=== PATIENT | female | born 1940 | race Caucasian/White ===

== ENCOUNTER 2017-02-23 06:38 | Day surgery (SDC) | payer MEDICARE, OTHER ==
[~2017-02-23] VITALS: Ht 165.1 cm; Wt 101.1 kg
[2017-02-23] VITALS: BP 173/62
[2017-02-23 07:46] LABS: BASOPHILS 0.5 % (0-2); EOSINOPHILS 2.6 % (0-7); HEMOGLOBIN 12.6 g/dL (12-16); IMMATURE GRANULOCYTES 0.2 % (0-5); LYMPHOCYTES 29.3 % (15-50); MCH 32.8 pg (26.0-34.0); MCHC 33.2 g/dL (31.0-37.0); MEAN PLATELET VOLUME 11.1 fL (7.4-10.4); MONOCYTES 8.7 % (2-11); NEUTROPHILS 58.7 % (40-80); PLATELET COUNT 178 10x3/uL (130-400); RBC 3.84 10x6/uL (4.00-5.40); RDW 15.2 % (11.5-14.5); WBC 5.7 10x3/uL (4.8-10.8)
[2017-02-23 07:54] LABS: APTT 28.1 SECONDS (22.8-39.4); INR 0.94 (0.85-1.17); PROTIME 12.4 SECONDS (11.6-15.0)
[2017-02-23 08:02] LABS: ANION GAP 18.9 mmol/L (8-16); CALCIUM 10.2 mg/dL (8.5-10.1); CARBON DIOXIDE 25.4 mmol/L (21.0-32.0); CREATININE - SERUM 5.8 mg/dL (0.6-1.3); POTASSIUM - SERUM 4.3 mmol/L (3.5-5.1)
[2017-02-23] MEDS ORDERED: HYDRALAZINE HCL25 MG PO (08:20)
[2017-02-23] MEDS ORDERED: FUROSEMIDE40 MG PO (08:20)
[2017-02-23] MEDS ORDERED: NORVASC5 MG PO (08:21)
[2017-02-23] MEDS ORDERED: SYNTHROID50 MCG PO (08:23)
[2017-02-23] MEDS ORDERED: DIOVAN160 MG PO (08:25)
[2017-02-23] MEDS ORDERED: NORMODYNE / TR100 MG PO (08:28)
[2017-02-23 09:12] VITALS: BP 148/63; BMI 36.6
--- NOTE | 2017-02-23 09:52 | NUR ---
0950 LAB VALUES CLEAR PER NEPHROLOGY PARAMETERS. Shara SHAW R.N.
--- NOTE | 2017-02-23 12:32 | NUR ---
FAMILY UPDATED AT THIS TIME IN WAITING ROOM AT EXT 2500
--- NOTE | 2017-02-23 13:30 | NUR ---
RIGHT HERO DIAYLSIS GRAFT RIGHT BRACHEAL CAPHALIC VEIN ANGIOPLASTY SUPERIOR VENA CAVAGRAM
--- NOTE | 2017-02-23 15:01 | NUR ---
PT COMPLAINED OF BEING IN PAIN. RATED PAIN 6/10. RECEIVED FURTER ORDERS TO GIVE BUPRENORPHINE 0.15MG IV PER DR. GRIMES.
--- NOTE | 2017-02-23 15:07 | NUR ---
TRANSFER FROM OR BY BED. OREINTED TO ROOM. CALL LIGHT IN REACH. WILL CONT. PLAN OF CARE.
[2017-02-23 15:17] VITALS: BP 169/72; Ht 165.1 cm; Wt 101.1 kg
[2017-02-23 15:51] VITALS: BP 169/72
--- NOTE | 2017-02-23 16:11 | NUR ---
BLEEDING NOTED TO INCISION SITE. DRY 4X4 AND TAPE APPLIED TO SITE. WILL MONITOR.
--- NOTE | 2017-02-23 19:05 | NUR ---
BEDSIDE REPORT WITH GUZMAN. NAME PLACED ON BOARD AND INTRODUCED TO PT. PT DENIES ANY NEEDS AT THIS TIME. NO S/S OF DISTRESS. PT RESTING AND WILL CALL IF ANY NEEDS. BED LOW AND CALLLIGHT WITHIN REACH
--- NOTE | 2017-02-23 21:33 | NUR ---
PT ON SIDE OF BED. AAO. ASKS FOR JELLO AND SODA. CONVERSATING ABOUT HX AND ABOUT TODAYS PROCEDURE. LEFT HAND IV S/L. PATENT CLEAN AND DRY. DENIES ANY NEEDS. NO S/S OF DISTRESS. WILL CONTINUE TO MONITOR
--- NOTE | 2017-02-23 23:30 | NUR ---
INSENITIVE SPIROMETER GIVEN TO PT AND INSTRUCTIONS GIVEN ON HOW TO USE IT. PT DEMOSTRATED CORRECT USE WITH AN AVERAGE OF 1000. PT WANTED TO MAKE SURE TO PREVENT PNEUMONIA. STATES SHE GETS IT OFTEN. SPRIOMETER GIVEN FOR PREVENTION.PT DENIES ANY OTHER NEEDS AT THIS TIME. WILL CONTINUE TO MONTIOR
[2017-02-24 04:51] VITALS: BP 171/53
[2017-02-24 06:12] LABS: BASOPHILS 0.4 % (0-2); EOSINOPHILS 0.8 % (0-7); HEMATOCRIT 34.1 % (36.0-48.0); HEMOGLOBIN 11.1 g/dL (12-16); IMMATURE GRANULOCYTES 0.1 % (0-5); LYMPHOCYTES 17.3 % (15-50); MCH 32.4 pg (26.0-34.0); MCHC 32.6 g/dL (31.0-37.0); MCV 99.4 fL (80.0-100.0); MEAN PLATELET VOLUME 11.3 fL (7.4-10.4); MONOCYTES 10.4 % (2-11); PLATELET COUNT 158 10x3/uL (130-400); RBC 3.43 10x6/uL (4.00-5.40)
[2017-02-24 06:44] LABS: WBC 7.6 10x3/uL (4.8-10.8)
[2017-02-24 06:55] LABS: ANION GAP 17.2 mmol/L (8-16); BILIRUBIN - TOTAL 0.6 mg/dL (0.2-1.3); CALCIUM 9.2 mg/dL (8.5-10.1); CARBON DIOXIDE 25.5 mmol/L (21.0-32.0); CREATININE - SERUM 6.7 mg/dL (0.6-1.3); POTASSIUM - SERUM 4.7 mmol/L (3.5-5.1); PROTEIN - SERUM 6.1 g/dL (6.4-8.2)
--- NOTE | 2017-02-24 07:22 | NUR ---
PT SITTING ON SIDE OF BED USING SPIROMETER. PT IN A HAPPY MOOD. PT DENIES ANY NEEDS. NO S/S OF DISTRESS. WILL CONTINUE TO MONITOR
--- NOTE | 2017-02-24 07:45 | NUR ---
INTRODUCED MYSELF TO PT PRIMARY RN FOR TODAYS SHIFT. PT A&O RESTING QUIETLY SITTING UP IN BED. SHIFT ASSESSMENT COMPLETED. PT HOPING TO BE D/C TODAY AFTER DIALYSIS. PT REFUSED HER MORNING MEDICATIONS AND STATED HER SPECIALTY COOK TOLD HER TO ALWAYS HOLD THEM ON THE MORNING OF DIALYSIS DAYS R/T BOTTOMING BP. PT DENIES ANY CURRENT PAIN OR FURTHER NEEDS AT THIS TIME. CL IN REACH, BED IN LOWEST, SIDE RAILS X2. WILL CPOC.
[2017-02-24 09:07] VITALS: BP 139/52
--- NOTE | 2017-02-24 09:46 | NUR ---
DIALYSIS CALLED FOR PT. PT WAS JUST TRANSPORTATED. NO CURRENT NEEDS. WILL CPOC.
--- NOTE | 2017-02-24 10:58 | NUR ---
PT DOWN IN DIALYSIS C/O EXCRUIATING PAIN ALL OVER. REQUESTED AND PROVIDED WITH PRN PAIN MEDICATION. PT VOICED THANKS AND IS RECIEVING DIALYSIS WITH STABLE VSS. NO FURTHER NEEDS AT THIS TIME. WILL CPOC.
--- NOTE | 2017-02-24 13:00 | NUR ---
PT BACK FROM DIALYSIS. C/O ITCHING ALL OVER WILL HAVE BENADRYL ORDERED. VSS PT EATING LUNCH DENIES ANY CURRENT NEEDS. WILL CTM.
--- NOTE | 2017-02-24 16:00 | NUR ---
PT VOICED RELIEF FROM BENADRYL AND PAIN PILL. PT RESTING QUIETLY IN BED AND DENIES ANY CURRENT NEEDS. CL IN REACH, BED IN LOWEST, SIDE RAILS X2. WILL CPOC.
[2017-02-24 16:32] VITALS: BP 113/47
--- NOTE | 2017-02-24 21:32 | NUR ---
NIGHTLY MEDS PASSED. PT REQUESTED PRN PAIN MED ALONG WITH BENADRYL FOR HER ITCHING STILL. PT SITTING UP IN BED AND WANTS TO TRY AND GET SOME REST. RABBIT DRESSER NURSE IS TAKING OVER AT 1100 AND I EXPLAINED THAT TO PT AND SHE VERBALIZED UNDERSTANDING. NO FURTHER NEEDS AT THIS TIME. WILL CTM.
[2017-02-24 23:32] VITALS: BP 139/57
--- NOTE | 2017-02-25 01:39 | NUR ---
RECEIVED IN BEDROOM. RESTING IN BED WITH EYES CLOSED. NO SIGNS OF DISTRESS. CALL LIGHT IN REACH. BED ALARM ON
[2017-02-25 06:24] VITALS: BP 119/54
--- NOTE | 2017-02-25 08:07 | NUR ---
PT SITTING UP ON SIDE OF BED. PT STATES SHE IS READY TO GO HOME. PT DENIES OTHER NEEDS. WCTM.
[2017-02-25 08:42] VITALS: BP 127/55
[2017-02-25] MEDS ORDERED: HYDROCODON-ACE1 EAC7 PO (10:28)
--- NOTE | 2017-02-25 17:00 | OP ---
PATIENT NAME: MICHAEL COTO MEDICAL RECORD: [id number] :41 [facility] DATE: SURGEON: TRUDI GRIMES MD OPERATION DATE: 02/23/17 SURGEON: Trudi Grimes MD REFERRING PHYSICIAN: Dr. Beto Pham from the [facility] in [place], [place] and Dr. Rush. PREOPERATIVE DIAGNOSIS: End-stage renal disease and dependence on renal dialysis, central vein stenosis, and other complication of surgically constructed arteriovenous fistula. POSTOPERATIVE DIAGNOSIS: End-stage renal disease and dependence on renal dialysis, central vein stenosis, and other complication of surgically constructed arteriovenous fistula. OPERATION PERFORMED: Implantation of a Hero graft including ultrasound guided access of the right internal jugular vein and placement of a catheter selectively into the superior vena cava and performance of superior vena cavagram and balloon angioplasty of stenosis of the right internal jugular and right brachiocephalic veins. ANESTHESIA: General endotracheal anesthesia per BRACER. PREOPERATIVE NOTE: The patient is a wu 76-year-old white female retired high school assistant football coach with end-stage renal disease who is presently dialyzing with a right brachiocephalic arteriovenous fistula which is somewhat aneurysmal and hyperpulsatile. 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 She is brought to the operating room for the procedure today as an outpatient with plans for her to remain in overnight observation and either be admitted to the hospital or be discharged tomorrow. She will need to have dialysis tomorrow. PROCEDURE: Under general endotracheal anesthesia in the supine position, the patient is prepped and draped in a sterile manner. With the head turned to the left and the neck hyperextended, she was prepped and draped in a sterile manner and I accessed the stenotic right internal jugular vein which had had previous dialysis catheters. I did this with ultrasound guidance and micropuncture technique and this led up to placement of a 7-Lithuanian introducer. I subsequently performed a superior vena cavagram with a catheter in the saphenous vein graft and pulled backwards into the internal jugular vein. This demonstrated a stenosis of the distal brachiocephalic and the proximal internal jugular veins. There was no filling of the subclavian. This stenosis was subsequently dilated with 8 millimeter diameter 6 centimeter long angioplasty balloon. I then placed a Amplatz wire in the inferior vena cava and over that advanced rigid dilators and then a peel-away introducer sheath dilator combo. I then inserted the venous outflow device over the guidewire through the peel-away sheath using a angioplasty balloon as the leading point on the balloon catheter. The tip of the Hero was positioned in the inferior aspect of the right atrium. The guidewires were removed and the catheter aspirated free. No blood returned. It was then flushed with heparinized saline and then contrast injection performed with digital subtraction angiography to confirm appropriate OPERATIVE REPORT [id number] MICHAEL COTO placement in the right atrium. The catheter was again flushed with heparinized saline and clamped. A infraclavicular incision was made over the deltopectoral groove and the outflow device was then pulled through a subcutaneous tunnel into the deltopectoral groove. I then made an incision over the medial third of the anterior aspect of the right upper arm over the cephalic vein and exposed it and prepared segment for eventual ligation, division, and end-to-end anastomosis. I chose a 6 millimeter straight standard wall thickness gore Propaten PTFE graft and this was patched to a clamshell device which is subsequently used to attach it to the Hero outflow catheter. The anti-kinking device was also utilized over the proximal end of the graft. The graft was pulled through a subcutaneous tunnel to the distal arm incision. The patient was systemically heparinized with 5000 units of heparin which was not reversed at the end of the procedure. The cephalic vein above the level of anticipated division was ligated with 2-0 silk. The vein was then clamped and divided. A end-to-end anastomosis, PTFE to cephalic vein, was then done with running 6-0 procedure and the suture line treated with Evicel sealant. The Hero outflow device was shortened and the new graft and adaptor attached to it. Then this was sutured to the underlying pectoral muscle with 2-0 Prolene suture. This was done to prevent the Hero device from slipping in or out. After two minutes for the Evicel to cure, clamps were removed and excellent flow was immediately established in the new AV graft. This preserved the distal half of the cephalic vein fistula for continued access. The wounds were irrigated with gentamicin solution. They were infiltrated with 0.50% Marcaine with epinephrine and closed with interrupted inverted 3-0 Vicryl and running intracuticular 4-0 Monocryl and Dermabond glue. The incisions were dressed with Maxorb AG, Tegaderm, and Cavilon skin prep. The patient awakened from her anesthetic in stable condition, then taken to the recovery room. Blood loss during the procedure was really insignificant, probably 50 milliliters. None was replaced intraoperatively. All sponges, instruments, and needles were accounted for. No drain was used. No surgical specimen was submitted for histopathology. The patient will remain in the hospital this evening. She is to have dialysis tomorrow before she may be ready to go home. She is to continue all of her same medications, activities, et cetera. An appointment will be arranged for her in my office approximately two weeks from now for follow up and wound check. If desired and if there is no intervening real reason to do so sooner, we will leave the dressings intact and remove them when she is in the office. CC: Dr. Beto Pham, [facility] in [place], [place]. TRUDI GRIMES MD at 1700 CC: JOSE AGUIRRE MD [phone] DICTATION DATE: 02/23/[address] LAW CLERK: DM 02/25/17 1239 [facility] 02/25/17 [facility] [address] [place] [address]
== END 2017-02-25 15:16 | disposition home or self-care (01) ==
LOC: D.OPS 06:38 → D.M2 14:59 → D.OPS 02-25 15:16
PROVIDERS: Emergency Medicine; Surgery
DX: T82.858A Stenosis of other vascular prosthetic devices, implants and grafts, initial encounter (principal); E11.22 Type 2 diabetes mellitus with diabetic chronic kidney disease; I12.0 Hypertensive chronic kidney disease with stage 5 chronic kidney disease or end stage renal disease; N18.6 End stage renal disease; Z99.2 Dependence on renal dialysis; E11.40 Type 2 diabetes mellitus with diabetic neuropathy, unspecified; Z95.0 Presence of cardiac pacemaker; I69.998 Other sequelae following unspecified cerebrovascular disease; R26.89 Other abnormalities of gait and mobility; Z95.2 Presence of prosthetic heart valve; K21.9 Gastro-esophageal reflux disease without esophagitis; Z99.81 Dependence on supplemental oxygen; Z88.0 Allergy status to penicillin; Z88.2 Allergy status to sulfonamides; Z88.8 Allergy status to other drugs, medicaments and biological substances; Z79.899 Other long term (current) drug therapy

== ENCOUNTER 2017-08-01 16:53 | Emergency (ER) | payer MEDICARE, OTHER ==
[2017-02-23 15:17] VITALS: BMI 36.6
[~2017-08-01 16:53] MED LIST: DIOVAN160 MG PO; FUROSEMIDE40 MG PO; HYDRALAZINE HCL25 MG PO; HYDROCODON-ACE1 EAC7 PO; NORMODYNE / TR100 MG PO; NORVASC5 MG PO; SYNTHROID50 MCG PO
== END 2017-08-01 19:09 | disposition home or self-care (01) ==
LOC: D.ER 16:53
DX: I12.9 Hypertensive chronic kidney disease with stage 1 through stage 4 chronic kidney disease, or unspecified chronic kidney disease (principal); N18.9 Chronic kidney disease, unspecified; Z99.2 Dependence on renal dialysis

== ENCOUNTER 2017-08-03 08:33 | Inpatient (IN) | payer MEDICARE, OTHER ==
[~2017-08-03] VITALS: Ht 165.1 cm; Wt 109.5 kg
[2017-08-03 09:26] LABS: BASOPHILS 0.8 % (0-2); EOSINOPHILS 2.8 % (0-7); HEMATOCRIT 23.9 % (36.0-48.0); IMMATURE GRANULOCYTES 0.1 % (0-5); LYMPHOCYTES 15.9 % (15-50); MCH 32.3 pg (26.0-34.0); MCHC 33.5 g/dL (31.0-37.0); MCV 96.4 fL (80.0-100.0); MEAN PLATELET VOLUME 10.9 fL (7.4-10.4); MONOCYTES 5.9 % (2-11); NEUTROPHILS 74.5 % (40-80); RBC 2.48 10x6/uL (4.00-5.40); RDW 14.2 % (11.5-14.5); WBC 7.6 10x3/uL (4.8-10.8)
[2017-08-03 09:40] LABS: ALBUMIN 3.9 g/dL (3.4-5.0); ANION GAP 18.3 mmol/L (8-16); BILIRUBIN - TOTAL 0.7 mg/dL (0.2-1.3); CALCIUM 10.2 mg/dL (8.5-10.1); CREATININE - SERUM 8.9 mg/dL (0.6-1.3); POTASSIUM - SERUM 5.3 mmol/L (3.5-5.1); PROTEIN - SERUM 7.2 g/dL (6.4-8.2)
[2017-08-03 09:46] LABS: PLATELET COUNT 195 10x3/uL (130-400)
[2017-08-03 12:36] VITALS: BP 149/62; BP 195/83
[2017-08-03] MEDS ORDERED: COLACE100 MG PO (14:12)
[2017-08-03] MEDS ORDERED: DULCOLAX5 MG PO (14:13)
[2017-08-03 15:10] LABS: ALBUMIN 3.6 g/dL (3.4-5.0); ANION GAP 20.4 mmol/L (8-16); CALCIUM 10.2 mg/dL (8.5-10.1); CARBON DIOXIDE 21.8 mmol/L (21.0-32.0); PHOSPHOROUS 6.9 mg/dL (2.5-4.9); POTASSIUM - SERUM 5.2 mmol/L (3.5-5.1)
[2017-08-03 15:12] LABS: BASOPHILS 0.8 % (0-2); EOSINOPHILS 2.8 % (0-7); HEMATOCRIT 25.4 % (36.0-48.0); HEMOGLOBIN 8.6 g/dL (12-16); IMMATURE GRANULOCYTES 0.2 % (0-5); MCH 32.3 pg (26.0-34.0); MCHC 33.9 g/dL (31.0-37.0); MCV 95.5 fL (80.0-100.0); MEAN PLATELET VOLUME 10.8 fL (7.4-10.4); MONOCYTES 8.4 % (2-11); NEUTROPHILS 67.8 % (40-80); PLATELET COUNT 169 10x3/uL (130-400); RBC 2.66 10x6/uL (4.00-5.40); RDW 14.3 % (11.5-14.5); WBC 6.5 10x3/uL (4.8-10.8)
[2017-08-03 17:00] VITALS: BP 127/73
[2017-08-03 21:09] VITALS: BP 174/58
[2017-08-04] VITALS (8 sets, daily range): BP systolic 117–195; BP diastolic 54–83; Ht 165.1 cm; Wt 109.5 kg
[2017-08-04 10:07] LABS: BASOPHILS 0.7 % (0-2); EOSINOPHILS 3.1 % (0-7); HEMATOCRIT 25.9 % (36.0-48.0); HEMOGLOBIN 8.7 g/dL (12-16); IMMATURE GRANULOCYTES 0.1 % (0-5); LYMPHOCYTES 14.9 % (15-50); MCH 32.3 pg (26.0-34.0); MCHC 33.6 g/dL (31.0-37.0); MCV 96.3 fL (80.0-100.0); MEAN PLATELET VOLUME 10.8 fL (7.4-10.4); MONOCYTES 8.5 % (2-11); NEUTROPHILS 72.7 % (40-80); PLATELET COUNT 176 10x3/uL (130-400); RBC 2.69 10x6/uL (4.00-5.40); RDW 14.2 % (11.5-14.5); WBC 7.4 10x3/uL (4.8-10.8)
[2017-08-04 10:20] LABS: CALCIUM 9.9 mg/dL (8.5-10.1); CARBON DIOXIDE 22.6 mmol/L (21.0-32.0); CREATININE - SERUM 9.8 mg/dL (0.6-1.3)
[2017-08-04 10:21] LABS: ANION GAP 20.3 mmol/L (8-16); POTASSIUM - SERUM 5.9 mmol/L (3.5-5.1)
[2017-08-04 20:56] LABS: BASOPHILS 0.6 % (0-2); EOSINOPHILS 3.8 % (0-7); HEMATOCRIT 26.3 % (36.0-48.0); HEMOGLOBIN 8.8 g/dL (12-16); IMMATURE GRANULOCYTES 0.1 % (0-5); LYMPHOCYTES 20.6 % (15-50); MCH 32.2 pg (26.0-34.0); MCHC 33.5 g/dL (31.0-37.0); MCV 96.3 fL (80.0-100.0); MONOCYTES 7.5 % (2-11); NEUTROPHILS 67.4 % (40-80); PLATELET COUNT 181 10x3/uL (130-400); RBC 2.73 10x6/uL (4.00-5.40); RDW 14.3 % (11.5-14.5); WBC 7.1 10x3/uL (4.8-10.8)
[2017-08-04 21:06] LABS: CALCIUM 10.4 mg/dL (8.5-10.1); CARBON DIOXIDE 22.8 mmol/L (21.0-32.0); CREATININE - SERUM 10.1 mg/dL (0.6-1.3); POTASSIUM - SERUM 5.8 mmol/L (3.5-5.1)
[2017-08-05 03:54] VITALS: BP 143/61
[2017-08-05 07:49] LABS: BASOPHILS 0.5 % (0-2); EOSINOPHILS 0.5 % (0-7); HEMATOCRIT 25.9 % (36.0-48.0); HEMOGLOBIN 8.7 g/dL (12-16); LYMPHOCYTES 9.1 % (15-50); MCH 32.1 pg (26.0-34.0); MCHC 33.6 g/dL (31.0-37.0); MCV 95.6 fL (80.0-100.0); MEAN PLATELET VOLUME 10.6 fL (7.4-10.4); MONOCYTES 9.1 % (2-11); NEUTROPHILS 80.8 % (40-80); PLATELET COUNT 161 10x3/uL (130-400); RBC 2.71 10x6/uL (4.00-5.40); RDW 14.1 % (11.5-14.5); WBC 6.6 10x3/uL (4.8-10.8)
[2017-08-05 08:10] LABS: ANION GAP 20.8 mmol/L (8-16); CALCIUM 9.5 mg/dL (8.5-10.1); CARBON DIOXIDE 22.5 mmol/L (21.0-32.0); CREATININE - SERUM 10.2 mg/dL (0.6-1.3)
[2017-08-05 08:14] LABS: POTASSIUM - SERUM 6.3 mmol/L (3.5-5.1)
[2017-08-05 08:30] VITALS: BP 161/59
== END 2017-08-05 15:14 | disposition home or self-care (01) | DRG 314 ==
LOC: D.ER 08:33 → D.M2 11:03 → D.SDCHOLD 08-05 12:59 → D.M2 08-05 15:14
PROVIDERS: Emergency Medicine; Family Medicine; Internal Medicine; Surgery
PROC: B544ZZA Ultrasonography of Left Jugular Veins, Guidance (ICD-10-PCS; 2017-08-04)
PROC: B5181ZZ Fluoroscopy of Superior Vena Cava using Low Osmolar Contrast (ICD-10-PCS; 2017-08-04)
PROC: 06HM33Z Insertion of Infusion Device into Right Femoral Vein, Percutaneous Approach (ICD-10-PCS; 2017-08-04)
PROC: B51B1ZA Fluoroscopy of Right Lower Extremity Veins using Low Osmolar Contrast, Guidance (ICD-10-PCS; 2017-08-04)
PROC: 05HN33Z Insertion of Infusion Device into Left Internal Jugular Vein, Percutaneous Approach (ICD-10-PCS; principal; 2017-08-04 12:30)
DX: T82.590A Other mechanical complication of surgically created arteriovenous fistula, initial encounter (principal); N18.6 End stage renal disease; I12.0 Hypertensive chronic kidney disease with stage 5 chronic kidney disease or end stage renal disease; Y83.8 Other surgical procedures as the cause of abnormal reaction of the patient, or of later complication, without mention of misadventure at the time of the procedure; E11.22 Type 2 diabetes mellitus with diabetic chronic kidney disease; Z99.2 Dependence on renal dialysis; E11.40 Type 2 diabetes mellitus with diabetic neuropathy, unspecified; Z95.0 Presence of cardiac pacemaker; Z86.73 Personal history of transient ischemic attack (TIA), and cerebral infarction without residual deficits

== ENCOUNTER 2017-08-31 07:28 | Day surgery (SDC) | payer MEDICARE, OTHER ==
[~2017-08-31] VITALS: Ht 165.1 cm; Wt 98.9 kg
--- NOTE | ~2017-08-31 | OP ---
PATIENT NAME: MICHAEL COTO MEDICAL RECORD: [id number] :41 LOCATION:D.[facility] ADMISSION DATE: SURGEON: TRUDI GRIMES MD DATE OF OPERATION: 08/31/2017 REFERRING PHYSICIAN: Dr. Hines. PREOPERATIVE DIAGNOSIS: Thrombosed HeRO AV graft in the right upper extremity with a large pseudoaneurysm. POSTOPERATIVE DIAGNOSIS: Thrombosed HeRO AV graft in the right upper extremity with a large pseudoaneurysm. OPERATION PERFORMED: Open revision with thrombectomy and resection of a pseudoaneurysm and interposition of a 6 mm straight Acuseal graft. SURGEON: Trudi Grimes MD ANESTHESIA: General endotracheal per SARAN and Dr. Barcenas. PREOPERATIVE NOTE: Ms. Coto is a very nice lady who has dialysis in [place] and her vacuum metalizer operator there is Dr. Hines. 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 She has recently dialyzed well, though with a right upper extremity HeRO graft. She developed a large pseudoaneurysm and thrombosed the graft and is brought to the operating room for its repair and revision. DESCRIPTION OF PROCEDURE: Under general anesthesia, the patient was prepped and draped in a sterile manner. An incision was placed over the graft and it was dissected from the surrounding structures and just above the antecubital space. It was controlled with Silastic loops and vascular clamps. The pseudoaneurysm was resected and thrombus removed from the arterial limb, which was then flushed with heparinized saline and reclamped. Another incision was made proximally and the graft exposed and also clamped and divided. The intervening segment was suctioned free of all blood and the proximal segment was flushed with heparinized saline. I chose a new 6 mm diameter length of Acuseal graft and placed in a subcutaneous tunnel and performed end-to-end anastomoses to the arterial and outflow limbs with running 6-0 Prolene. When completed and the occluding loops and clamps were released, hemostasis was adequate, the suture lines were intact, and excellent flow was established immediately within the fistula. I forgot to mention the clot was removed from the outflow tract with a John embolectomy catheter. The patient was heparinized intraoperatively with 5000 units of heparin. Blood loss was approximately 200 units. At the termination of the operation, the heparin was reversed with 50 mg of protamine and 20 mcg of DDAVP. I left one 10-mm diameter flat CONNOR closed suction drain in the wound and brought out through a separate stab incision. The wounds were closed with interrupted inverted 3-0 Vicryl in layers and the skin was closed with running intracuticular Monocryl. The incisions were sealed with Dermabond glue and dressed with Maxorb Ag, Tegaderm, and Cavilon skin prep. The patient was awakened and taken to the recovery room in stable condition. PLAN: Probably overnight observation and most likely discharge to home tomorrow after successful dialysis using Acuseal technique. Depending on the volume of drainage, we will either remove her CONNOR drain before she goes home or I will have home health follow up with her and plan to remove that drain myself in my OPERATIVE REPORT [id number] MICHAEL COTO office. We will check CBC and other lab in the morning. She will resume all her home medications, diet, etc. TRANSINT:[id number] Voice Confirmation ID: [id number] DOCUMENT ID: [id number] CC: Abimael Garcia [phone] TRUDI GRIMES MD at 1019 CC: [facility] [phone] DICTATION DATE: 09/12/17 1453 [place] OPERATOR: 09/12/17 1540 [facility] 09/01/17 [id number] [place] [address]
[~2017-08-31 07:28] MED LIST changes: +COLACE100 MG PO; +DULCOLAX5 MG PO
[2017-08-31] MEDS ORDERED: PHOSLO667 MG PO (08:35)
[2017-08-31 08:44] LABS: EOSINOPHILS 4.3 % (0-7); HEMATOCRIT 29.3 % (36.0-48.0); HEMOGLOBIN 9.4 g/dL (12-16); IMMATURE GRANULOCYTES 0.2 % (0-5); LYMPHOCYTES 18.7 % (15-50); MCHC 32.1 g/dL (31.0-37.0); MCV 96.7 fL (80.0-100.0); MEAN PLATELET VOLUME 11.4 fL (7.4-10.4); NEUTROPHILS 65.8 % (40-80); PLATELET COUNT 188 10x3/uL (130-400); RBC 3.03 10x6/uL (4.00-5.40); RDW 14.5 % (11.5-14.5); WBC 6.1 10x3/uL (4.8-10.8)
[2017-08-31 08:53] LABS: APTT 29.3 SECONDS (22.8-39.4); INR 1.08 (0.85-1.17); PROTIME 13.6 SECONDS (11.6-15.0)
[2017-08-31 08:54] VITALS: BP 139/63; BMI 36.3
[2017-08-31 08:56] LABS: ANION GAP 17.9 mmol/L (8-16); CALCIUM 10.5 mg/dL (8.5-10.1); CARBON DIOXIDE 24.7 mmol/L (21.0-32.0); CREATININE - SERUM 6.6 mg/dL (0.6-1.3); POTASSIUM - SERUM 4.6 mmol/L (3.5-5.1)
[2017-08-31 21:31] VITALS: BP 144/53
[2017-09-01 00:30] VITALS: BP 126/41
[2017-09-01 01:46] VITALS: BP 144/53; BMI 36.3
[2017-09-01 04:30] VITALS: BP 109/38
[2017-09-01 06:54] LABS: BASOPHILS 0.6 % (0-2); EOSINOPHILS 1.9 % (0-7); HEMATOCRIT 24.4 % (36.0-48.0); HEMOGLOBIN 7.9 g/dL (12-16); LYMPHOCYTES 17.2 % (15-50); MCH 31.6 pg (26.0-34.0); MCHC 32.4 g/dL (31.0-37.0); MCV 97.6 fL (80.0-100.0); MEAN PLATELET VOLUME 11.2 fL (7.4-10.4); MONOCYTES 10.2 % (2-11); NEUTROPHILS 70.1 % (40-80); PLATELET COUNT 182 10x3/uL (130-400); RDW 14.5 % (11.5-14.5); WBC 6.3 10x3/uL (4.8-10.8)
[2017-09-01 07:38] LABS: ANION GAP 16.1 mmol/L (8-16); CALCIUM 8.8 mg/dL (8.5-10.1); CARBON DIOXIDE 25.5 mmol/L (21.0-32.0); CREATININE - SERUM 7.4 mg/dL (0.6-1.3)
[2017-09-01 07:42] LABS: POTASSIUM - SERUM 5.6 mmol/L (3.5-5.1)
[2017-09-01 09:37] VITALS: BP 115/41
[2017-09-01 10:59] VITALS: Ht 165.1 cm; Wt 98.9 kg
== END 2017-09-01 16:00 | disposition home or self-care (01) ==
LOC: D.M2 07:28 → D.OPS 07:28 → D.M2 17:35 → D.OPS 09-01 16:00
PROVIDERS: Surgery
DX: I13.2 Hypertensive heart and chronic kidney disease with heart failure and with stage 5 chronic kidney disease, or end stage renal disease (principal); E11.22 Type 2 diabetes mellitus with diabetic chronic kidney disease; N18.6 End stage renal disease; I50.9 Heart failure, unspecified; Z99.2 Dependence on renal dialysis; E03.9 Hypothyroidism, unspecified; Z01.812 Encounter for preprocedural laboratory examination